=== PATIENT | male | born 1960 | race Native Hawaiian/Other Pacific Islander ===

== ENCOUNTER 2022-04-11 15:07 | Outpatient (CLI) | payer BC | END 2022-04-11 18:53 | disposition home or self-care (01) | LOC: RAD 15:07 | PROVIDERS: ATTEND Orthopaedic Surgery | DX: M25.562 Pain in left knee (principal) ==

== ENCOUNTER 2023-03-20 14:33 | Outpatient (CLI) | payer BC | END 2023-03-20 18:58 | disposition home or self-care (01) | LOC: RAD 14:33 | PROVIDERS: ATTEND Orthopaedic Surgery | DX: Z96.652 Presence of left artificial knee joint (principal) ==